=== PATIENT | female | born 1995 | race Hispanic/Latino ===

== ENCOUNTER 2020-12-11 13:52 | Emergency (ER) | payer OTHER ==
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
--- NOTE | 2020-12-11 15:19 | RAD REPORT ---
EXAM DESCRIPTION: RAD - Hand Left 3 View - 12/11/2020 3:05 pm CLINICAL HISTORY: PAIN COMPARISON: No comparisons FINDINGS: No left hand fracture or malalignment. No focal degenerative changes. No radiopaque foreig n bodies. IMPRESSION: No left hand fracture or malalignment.
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
[2020-12-11] MEDS ORDERED: HYDROCODONE/APAP 7.5/325 MG TAB ONE (15:54)
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
== END 2020-12-11 15:35 | disposition home or self-care (01) ==
LOC: ER 13:52
DX: R51.9 Headache, unspecified (principal); M79.604 Pain in right leg; M79.631 Pain in right forearm; M79.642 Pain in left hand; V49.40XA Driver injured in collision with unspecified motor vehicles in traffic accident, initial encounter
CPT/HCPCS: 70450; 70486; 72125; 76377; 99283

== ENCOUNTER 2022-08-26 08:51 | Emergency (ER) | payer OTHER, SELFPAY ==
--- OUTSIDE RECORDS SUMMARY | 2022-08-26 08:55 | XMS REPORT | Continuity of Care Document ---
:1995 Author Organization [facility] t Address [address] [place] [address] Care Team Providers Name Role Phone PCP, PATIENT DOES NOT HAVE A Primary Care Physician Unavaila ble Ester Montalvo DO Attending Clinician ESTER MONTALVO Attending Clinician Unavailable Problems Condition Condition Condition Status Onset Resolution Last Treating Co mments Source Name Details Category Date Date Treatment Clinician Date No known No known Disease Unive rs active active ity of problems problems [facility] Allergies, Adverse Reactions, Alerts Allergy Allergy Status Severity Reaction(s) Onset Inactive Treating Comm ents Source Name Type Date Date Clinician NO KNOWN Drug Active Univers ALLERGIE Class ity of S [facility] Social History Social Habit Start Date Stop Date Quantity Comments Source Exposure to 2021-08-13 2021-08-23 Not sure [facility] SARS-CoV-2 (event) 00:00:00 21:12:00 Medica l Branch Sex Assigned At [birth year] [facility] 00:00:00 00:00:00 [facility] Smoking Status Start Date Stop Date Source Unknown if ever smoked [facility] Medications Ordered Filled Start Stop Current Ordering Indication Dosage Frequency Signature Comments Components Source Medication Medication Date Date Medication? Clinician (SIG) Name Name acetaminoph No 650mg 650 mg, U nivers en 08-24 Oral, ity of (TYLENOL) 05:00: 04:11 ONCE, 1 [place] tablet 650 00 :00 dose, On Medic al mg Tue Branch 08/24/21 at 0000, BRIGITTE NaCl 0.9% 2021- No 1000mL at 999 Uni vers (NS) bolus 08-24 mL/hr, ity of infusion 04:15: 04:49 1,000 mL, Chriss as 1,000 mL 00 :00 IV Medical Infusion, Branch ONCE, 1 dose, On [facility] 08/23/21 at 2315, BRIGITTE cefTRIAXone No 1000mg 1,000 mg, Univers (ROCEPHIN) 08-24 IV ity of 1,000 mg in 04:15: 03:45 Piggyback, [place] NaCl 0.9% 00 :00 ONCE, 1 Medical (NS) 50 mL dose, On Bran h MINI-BAG [facility] 08/23/21 at 2315, Administer over 30 Minutes, 50 mL
Reas on for Anti-Infec tive: Empiric Therapy for Suspected Infection< br>Empiric Therapy Site: Urine
D uration of therapy: 72 hours ibuprofen No 600mg 600 mg, Uni vers (IBU) 08-24 Oral, ity of tablet 600 03:30: 02:30 ONCE, 1 Chriss as mg 00 :00 dose, On Medical Mon Branch 08/23/21 at 2230, BRIGITTE NaCl 0.9% 2021- No 1000mL at 999 Uni vers (NS) bolus 08-24 mL/hr, ity of infusion 03:30: 03:24 1,000 mL, Chriss as 1,000 mL 00 :00 IV Medical Infusion, Branch ONCE, 1 dose, On [facility] 08/23/21 at 2230, BRIGITTE cefpodoxime 2021-2021- No [id number] 100mg Take 1 Univers 100 mg 08-2303 tablet by ity of tablet 00:00: 04:59 mouth 2 [place] 00 :00 (two) Medical times Branch daily for 7 days. Vital Signs Vital Name Observation Time Observation Value Comments Source Systolic blood 2021-08-24 05:22:00 110 mm[Hg] Khai sity of pressure [facility] Diastolic blood 2021-08-24 05:22:00 70 mm[Hg] [facility] Heart rate 2021-08-24 05:22:00 100 /min [facility] Body temperature 2021-08-24 05:22:00 37 [facility] Respiratory rate 2021-08-24 05:22:00 26 /min [facility] Oxygen saturation in 2021-08-24 05:22:00 98 /min [facility] blood by [facility] Pulse oximetry [facility] Body height 2021-08-24 02:14:00 154.9 cm [facility] Body weight 2021-08-24 02:14:00 68.04 kg [facility] BMI 2021-08-24 02:14:00 28.34 kg/m2 [facility] Procedures Procedure Date / Time Performed Performing Clinician Sour e POCT TEST 2021-08-24 02:31:00 Ester Montalvo [facility] MAGNESIUM 2021-08-24 02:29:00 Ester Montalvo [facility] COMP. METABOLIC PANEL 2021-08-24 02:29:00 Ester Montalvo [facility] ([id number]) [facility] CBC WITH DIFF 2021-08-24 02:29:00 Ester Montalvo [facility] URINALYSIS 2021-08-24 02:29:00 Ester Montalvo [facility] RAPID INFLUENZA A/B 2021-08-24 02:29:00 Ester Montalvo [facility] NOTICE OF PRIVACY 2021-08-24 02:18:28 Doctor Unassigned, No Univ [facility] CONSENT/REFUSAL FOR 2021-08-24 02:07:26 Doctor Unassigned, No [facility] DIAGNOSIS AND Name [facility] TREATMENT Encounters Start End Encounter Admission Attending Care Care Encounter Source Date/Time Date/Time Type Type Clinicians Facility Department ID 2022-07-26 2022-07-26 Outpatient [facility] [id number] Errol 16:32:38 16:32:38 [id number] F Praveen 2022-02-07 2022-02-07 Outpatient [facility] [id number] Errol 09:28:36 09:28:36 [id number] F Praveen 2021-08-23 2021-08-24 Emergency [facility] [id number] Univers 21:07:00 00:25:00 Ester LOWRY [id number] [facility] [id number] [place] [facility] [id number] [place] [id number] [facility] 2021-08-23 2021-08-24 Emergency [facility] ERT [id number] Univers 21:07:00 00:25:00 ESTER [facility] Results Test Description Test Time Test Comments Results Result Comments Source MAGNESIUM 2021-08-24 02:59:02 Test Item Value Reference Range Interpretation Comme nts MAGNESIUM (test code = 6268575821) 1.8 mg/dL 1.7-2.4 Lab Interpretation (test code = 87727-1) Normal [facility] (87984)2021-08-24 02:58:42 Test Item Value Reference Range Interpretation Comments NA (test code = 137 mmol/L 135-145 9367492339) K (test code = 3.5 mmol/L 3.5-5.0 6983397177) CL (test code = 100 mmol/L 98-108 0002300906) CO2 TOTAL (test code = 21 mmol/L 23-31 L 3387250604) AGAP (test code = 2-16 7736734875) BUN (test code = 8 mg/dL 7-23 3745115600) GLUCOSE (test code = 144 mg/dL 70-110 H 6363281546) CREATININE (test code = 0.67 mg/dL 0.50-1.04 5073676260) TOTAL BILI (test code = 0.5 mg/dL 0.1-1.9 1919436643) CALCIUM (test code = 8.6 mg/dL 8.6-10.6 3046050246) T PROTEIN (test code = 7.9 g/dL 6.3-8.2 8559453696) ALBUMIN (test code = 4.9 g/dL 3.5-5.0 3612357133) ALK PHOS (test code = 88 U/L 34-122 9140517738) ALTv (test code = 25 U/L 5-35 1742-6) AST(SGOT) (test code = 26 U/L 13-40 6804642170) eGFR (test code = mL/min/1.73m2 8690261063) YNES (test code = YNES) Association of Glomerular Filtration Rate (GFR) and Staging of Kidney Disease* + --+ --+ ------+| GFR (mL/min/1.73 m2) ?| With Kidney Damage ?| ?Without Kidney Damage+ --------+ --------+ +| ?>90 ?| ?Stage one ?| ? Normal ?+ ---+ ---+ -------+| ?60-89 ?| ?Stage two ?| ? Decreased GFR ? + --+ --+ ------+| ?30-59 ?| ?Stage three ?| ? Stage three ? + --+ --+ ------+| ?15-29 ?| ?Stage four ? | ? Stage four ?+ ---+ ---+ -------+| ?<15 (or dialysis) ? ?| ?Stage five ? | ? Stage five ?+ ---+ ---+ -------+ *Each stage assumes the associated GFR level has been in effect for at least three months. ?Stages 1 to 5, with or without kidney disease, indicate chronic kidney disease. Notes: Determination of stages one and two (with eGFR >59mL/min/1.73 m2) requires estimation of kidney damage for at least three months as defined by structural or functional abnormalities of the kidney, manifested by either:Pathological abnormalities or Markers of kidney damage (including abnormalities in the composition of the blood or urine or abnormalities in imaging tests). Lab Interpretation Abnormal (test code = 81327-3) [facility] WITH [id number] 02:40:35 Test Item Value Reference Range Interpretation Comments WBC (test code = See_Comment H [Automated 6690-2) message] The system which generated this result transmit raquel reference range : 4.30 - 11.10 10*3/?L. The reference range was not used to interpret this result as normal/abnormal . RBC (test code = See_Comment [Automated 789-8) message] The system which generated this result transmit raquel reference range : 3.93 - 5.25 10*6/?L. The reference range was not used to interpret this result as normal/abnormal . HGB (test code = 14.5 g/dL 11.6-15.0 718-7) HCT (test code = 44.1 % 35.7-45.2 4544-3) MCV (test code = 85.6 fL 80.6-95.5 787-2) MCH (test code = 28.2 pg 25.9-32.8 785-6) MCHC (test code = 32.9 g/dL 31.6-35.1 786-4) RDW-SD (test code = 38.5 fL 39.0-49.9 L 24410-4) RDW-CV (test code = 12.2 % 12.0-15.5 788-0) PLT (test code = See_Comment [Automated 777-3) message] The system which generated this result transmit raquel reference range : 166 - 358 10*3/ ?L. The reference range was not u sed to interpret th is result as normal/abnormal . MPV (test code = 10.1 fL 9.5-12.9 76238-3) NRBC/100 WBC (test See_Comment [Automat ed code = 1822749789) message] The system which generated this result transmit raquel reference range : 0.0 - 10.0 /100 WBCs. The reference range was not used to interpret this result as normal/abnormal . NRBC x10^3 (test code <0.01 See_Comment [Auto mated = 5590984926) message] The system which generated this result transmit raquel reference range : 10*3/?L. The reference range was not used to interpret this result as normal/abnormal . GRAN MAT (NEUT) % 87.2 % (test code = 770-8) IMM GRAN % (test code 0.40 % = 8503034939) LYMPH % (test code = 7.3 % 736-9) MONO % (test code = 4.9 % 5905-5) EOS % (test code = 0.0 % 713-8) BASO % (test code = 0.2 % 706-2) GRAN MAT x10^3(ANC) 12.02 10*3/uL 1.88-7.09 H (test code = 0079305598) IMM GRAN x10^3 (test 0.05 10*3/uL 0.00-0.06 code = 8115146979) LYMPH x10^3 (test code 1.00 10*3/uL 1.32-3.29 L = 731-0) MONO x10^3 (test code 0.67 10*3/uL 0.33-0.92 = 742-7) EOS x10^3 (test code = <0.03 0.03-0.39 L 711-2) BASO x10^3 (test code 0.03 10*3/uL 0.01-0.07 = 704-7) Lab Interpretation Abnormal (test code = 86341-7) [id number] 02:31:00 Test Item Value Reference Range Interpretation Comments POCT PREG (test code = 1605) NEGATIVE On board controls acceptable with PRESENT C Line (test code = 3574) POCT PREG LOT # (test code = 3575) [id number] POCT PREG TEST DATE (test 01/28/2023 code = 3576) Lab Interpretation (test code = Normal 68531-7) [facility]"
[2022-08-26] MEDS ORDERED: KETOROLAC 30 MG/ML INJ ONE (09:29)
[2022-08-26] MEDS ORDERED: NA CHLORIDE 0.9% 1,000 ML ONE (09:30)
[2022-08-26 09:44] LABS: Absolute Lymphocytes (CBC) 1.6 K/uL (0.7-4.9); Hematocrit 38.7 % (36.0-45.0); Lymphocytes % 17.7 % (15.3-44.8); MCV 84.1 fL (80-100); MPV 7.8 fL (7.6-11.3); RBC Red Blood Cell Count 4.61 M/uL (3.86-4.86)
[2022-08-26 10:05] LABS: Albumin 3.7 g/dL (3.4-5.0); Bilirubin Total 0.3 mg/dL (0.2-1.0); Potassium 3.7 mEq/L (3.5-5.1); Protein, Total 7.4 g/dL (6.4-8.2)
[2022-08-26 10:15] LABS: Specific Gravity 1.019 (1.005-1.030)
[2022-08-26 10:20] LABS: Specific Gravity 1.019 (1.005-1.030); Urine Bacteria 20-50 /HPF (<20); Urine Bilirubin NEGATIVE (Negative); Urine Blood Negative (Negative); Urine Clarity Clear (Clear); Urine Color Light-Yellow (Yellow); Urine Glucose NEGATIVE (Negative); Urine Mucus Slight /HPF (None Seen); Urine Protein NEGATIVE (Negative); Urine RBC <5 /HPF (None Seen); Urine Urobilinogen Normal (Normal); Urine pH 6.5 (5.0-7.0)
--- NOTE | 2022-08-26 11:23 | RAD REPORT ---
EXAM DESCRIPTION: CT - Abdomen Pelvis W Contrast - 08/26/2022 10:36 am CLINICAL HISTORY: ABD PAIN COMPARISON: Head C Spine Mpr Wo Con dated 12/11/2020; Facial Bones W/ Mpr dated 12/11/2020 TECHNIQUE: Thin cut axial CT imaging of the abdomen and pelvis was performed following intravenous a dministration of 100 mL Isovue 300. Multiplanar reformats were generated and reviewed. All CT scans are performed using dose optimization technique as appropriate and may include automated exposure control or mA/KV adjustment according to patient size. FINDINGS: No suspicious findings in the lung bases. The liver demonstrates a posterior right lobe subcapsular eyes enhancing mass with central scar demon strating focal calcification, measuring 9.0 x 7.4 x 6.9 centimeter in greatest AP, transverse, and CC dimensions. Adrenal glands, spleen, and pancreas show no suspicious findings. Gallbladder and biliar y tree are also without suspicious finding. Symmetric renal function is seen with no hydronephrosis or suspicious renal mass. No dilated bowel loops or bowel wall thickening. The appendix is visualized and is unremarkable. No f ree air, free fluid or inflammatory stranding. No hernia, mass or bulky lymphadenopathy. The urinary bladder is without significant finding. No suspicious bony findings. IMPRESSION: Posterior right liver lobe 9 centimeter mass with central scar. Focal nodular hyperplasi a is the primary differential consideration. Fibrolamellar carcinoma and an atypical hemangioma are a lso on the list of possible etiologies. No acute intra-abdominal process. The findings were communicated to Jona De Leon on 08/26/2022 at 11:19 hours.
--- NOTE | 2022-08-26 11:33 | ER ---
Nurse's Notes [facility] Name: Zoey Bennett Age: 26 yrs Sex: Female : 1995 Arrival Date: 08/26/2022 Time: 08:51 Bed 5 Private MD: Diagnosis: Abdominal pain, Generalized;Liver Mass;Diarrhea, unspecified Presentation: 08/26 08:59 Chief complaint: Patient states: Abd pain \T\ diarrhea since Monday - this morning pain ld1 is radiating to L flank. Denies urinary symptoms. Coronavirus screen: At this time, the client does not indicate any symptoms associated with coronavirus-19. Ebola Screen: No symptoms or risks identified at this time. Initial Sepsis Screen: Does the patient meet any 2 criteria? No. Patient's initial sepsis screen is negative. Does the patient have a suspected source of infection? No. Patient's initial sepsis screen is negative. Risk Assessment: Do you want to hurt yourself or someone else? Patient reports no desire to harm self or others. Onset of symptoms was August 26, 2022. 08:59 Method Of Arrival: Ambulatory ld1 08:59 Acuity: DANILO 3 ld1 Triage Assessment: 09:00 General: Appears in no apparent distress. comfortable, Behavior is calm, cooperative, ld1 appropriate for age. Pain: Complains of pain in abdomen Pain does not radiate. Pain currently is 9 out of 10 on a pain scale. Quality of pain is described as crampy, throbbing. EENT: No signs and/or symptoms were reported regarding the EENT system. Neuro: Level of Consciousness is awake, alert, obeys commands, Oriented to person, place, time, situation. Cardiovascular: Capillary refill < 3 seconds Patient's skin is warm and dry. Respiratory: Airway is patent Respiratory effort is even, unlabored. GI: Abdomen is round non-distended, Reports lower abdominal pain, diarrhea, Patient currently denies nausea, vomiting. : Denies burning with urination, pain urinary frequency, urgency. Derm: No signs and/or symptoms reported regarding the dermatologic system. Musculoskeletal: No signs and/or symptoms reported regarding the musculoskeletal system. Historical: - Allergies: 09:00 No Known Allergies; ld1 - Home Meds: 09:00 None [Active]; ld1 - PMHx: 09:00 None; ld1 - PSHx: 09:00 None; ld1 - Immunization history:: Adult Immunizations up to date, Client reports having NOT received the Covid vaccine. - Social history:: Smoking status: Patient denies any tobacco usage or history of. Patient/guardian denies using alcohol. Screenin:00 [facility] ED Fall Risk Assessment (Adult) History of falling in the last 3 months, bp including since admission No falls in past 3 months (0 pts). Abuse screen: Denies threats or abuse. Denies injuries from another. Nutritional screening: No deficits noted. Tuberculosis screening: No symptoms or risk factors identified. Assessment: 09:00 General: SEE TRIAGE NOTE. bp 10:55 Reassessment: No changes from previously documented assessment. Patient is alert, bp oriented x 3, equal unlabored respirations, skin warm/dry/pink. 11:50 Reassessment: PT DC HOME AMBULATORY WITH FAMILY. bp Vital Signs: 08:59 BP 144 / 85; Pulse 107; Resp 18; Temp 98.4(TE); Pulse Ox 100% on R/A; Weight 68.04 kg; ld1 Height 5 ft. 2 in. ; Pain 9/10; 10:54 BP 127 / 80; Pulse 81; Resp 16; Pulse Ox 99% ; bp 11:50 BP 125 / 75; Pulse 90; Resp 16; Pulse Ox 99% ; bp 08:59 Body Mass Index 27.44 (68.04 kg, 157.48 cm) ld1 08:59 Pain Scale: Adult ld1 ED Course: 08:55 Patient arrived in ED. ts1 08:57 Angel[facility] Cummins [facility]C [facility] kb 08:57 Jona De Leon DO is Attending Physician. kb 09:00 Triage completed. ld1 09:00 Arm band placed on right wrist. ld1 09:00 Patient has correct armband on for positive identification. Bed in low position. Call bp light in reach. Side rails up X2. 09:16 Carlos Barajas, DEVYN is Primary Nurse. bp 09:37 Inserted saline lock: 20 gauge in right antecubital area, using aseptic technique. bp Blood collected. 10:38 CT Abd/Pelvis - IV Contrast Only In Process Unspecified. EDMS 11:50 No provider procedures requiring assistance completed. IV discontinued, intact, bp bleeding controlled, No redness/swelling at site. Pressure dressing applied. Administered Medications: 09:36 Drug: NS 0.9% IV 1000 ml Route: IV; Rate: 1 bolus; Site: right antecubital; bp 11:52 Follow up: IV Status: Completed infusion; IV Intake: 1000ml bp 09:36 Drug: TORadol - Ketorolac IVP 15 mg Route: IVP; Site: right antecubital; bp 11:52 Follow up: Response: No adverse reaction bp Medication: 11:50 VIS not applicable for this client. bp Intake: 11:52 IV: 1000ml; Total: 1000ml. bp Outcome: 11:33 Discharge ordered by MD. kb 11:50 Discharged to home ambulatory, with family. bp 11:50 Condition: stable 11:50 Discharge instructions given to patient, Instructed on discharge instructions, follow up and referral plans. medication usage, Demonstrated understanding of instructions, follow-up care, medications, Prescriptions given X 2. 11:53 Patient left the ED. bp Signatures: Dispatcher [employer] EDMS Angelique Cummins, ARUN-C ARUN-Carlos Gudiry, RN RN bp Sofie De Leon RN RN ld1 Jazmine Pride, PAS PAS ts1
--- NOTE | 2022-08-26 11:33 | EDPHYS ---
Physician Documentation [facility] Name: Zoey Bennett Age: 26 yrs Sex: Female : 1995 Arrival Date: 08/26/2022 Time: 08:51 Bed 5 Private MD: ED Physician Jona De Leon HPI: 08/26 09:35 This 26 yrs old Female presents to ER via Ambulatory with complaints of Abd kb Pain > 50 y/o, Back Pain. 09:35 The patient presents with abdominal pain in the lower abdomen. Onset: The kb symptoms/episode began/occurred 5 day(s) ago. The symptoms radiate to the left flank. Associated signs and symptoms: Pertinent positives: diarrhea, Pertinent negatives: nausea and vomiting, dysuria, fever. The symptoms are described as constant. Modifying factors: The symptoms are alleviated by nothing, the symptoms are aggravated by nothing. Severity of pain: At its worst the pain was moderate in the emergency department the pain is unchanged. The patient has not experienced similar symptoms in the past. The patient has not recently seen a physician. Pt reports abd pain that started on Monday, diarrhea started on Monday. States the pain now radiates to left flank. Denies urinary symptoms, fever, nausea and vomiting. Historical: - Allergies: 09:00 No Known Allergies; ld1 - Home Meds: 09:00 None [Active]; ld1 - PMHx: 09:00 None; ld1 - PSHx: 09:00 None; ld1 - Immunization history:: Adult Immunizations up to date, Client reports having NOT received the Covid vaccine. - Social history:: Smoking status: Patient denies any tobacco usage or history of. Patient/guardian denies using alcohol. ROS: 09:33 Constitutional: Negative for fever, chills, and weight loss. kb 09:33 Abdomen/GI: Positive for abdominal pain, diarrhea, Negative for nausea and vomiting, constipation. 09:33 All other systems are negative. Exam: 09:33 Constitutional: This is a well developed, well nourished patient who is awake, alert, kb and in no acute distress. Head/Face: Normocephalic, atraumatic. ENT: Moist Mucous membranes Cardiovascular: Regular rate and rhythm with a normal S1 and S2. No gallops, murmurs, or rubs. No pulse deficits. Respiratory: Respirations even and unlabored. No increased work of breathing. Talking in full sentences Skin: Warm, dry with normal turgor. Normal color. MS/ Extremity: Pulses equal, no cyanosis. Neurovascular intact. Full, normal range of motion. Neuro: Awake and alert, GCS 15, oriented to person, place, time, and situation. Moves all extremities. Normal gait. 09:33 Abdomen/GI: Inspection: abdomen appears normal, Bowel sounds: normal, Palpation: soft, in all quadrants, mild abdominal tenderness, in the right upper quadrant, right lower quadrant and left lower quadrant. Vital Signs: 08:59 BP 144 / 85; Pulse 107; Resp 18; Temp 98.4(TE); Pulse Ox 100% on R/A; Weight 68.04 kg; ld1 Height 5 ft. 2 in. ; Pain 9/10; 10:54 BP 127 / 80; Pulse 81; Resp 16; Pulse Ox 99% ; bp 11:50 BP 125 / 75; Pulse 90; Resp 16; Pulse Ox 99% ; bp 08:59 Body Mass Index 27.44 (68.04 kg, 157.48 cm) ld1 08:59 Pain Scale: Adult ld1 MDM: 08:57 Patient medically screened. kb 09:35 Data reviewed: vital signs, nurses notes. kb 11:31 Differential diagnosis: appendicitis, bowel obstruction, cholecystitis, Cholelithiasis, kb diverticulitis, gastritis, non-specific abd pain. Counseling: I had a detailed discussion with the patient and/or guardian regarding: the historical points, exam findings, and any diagnostic results supporting the discharge/admit diagnosis, lab results, radiology results, the need for outpatient follow up, a family practitioner, a at risk paraprofessional, to return to the emergency department if symptoms worsen or persist or if there are any questions or concerns that arise at home. ED course: Discussed all diagnostic results including liver mass with pt. Educated on need for further evaluation of mass. Verbal understanding received. . 08/26 09:01 Order name: CBC with Diff; Complete Time: 09:48 kb 08/26 09:01 Order name: CMP; Complete Time: 10:25 kb 08/26 09:01 Order name: Lipase; Complete Time: 10:25 kb 08/26 09:01 Order name: Test, Urine; Complete Time: 10:25 kb 08/26 09:01 Order name: Urinalysis w/ reflexes; Complete Time: 10:25 kb 08/26 09:01 Order name: CT Abd/Pelvis - IV Contrast Only; Complete Time: 11:27 kb 08/26 09:01 Order name: IV Saline Lock; Complete Time: 09:36 kb 08/26 09:01 Order name: Labs collected and sent; Complete Time: 09:36 kb Administered Medications: 09:36 Drug: NS 0.9% IV 1000 ml Route: IV; Rate: 1 bolus; Site: right antecubital; bp 11:52 Follow up: IV Status: Completed infusion; IV Intake: 1000ml bp 09:36 Drug: TORadol - Ketorolac IVP 15 mg Route: IVP; Site: right antecubital; bp 11:52 Follow up: Response: No adverse reaction bp Disposition: 19:31 Co-signature as Attending Physician, Jona De Leon DO I was immediately available on-site ms3 in the Emergency Department for consultation in the care of the patient. Disposition Summary: 08/26/22 11:33 Discharge Ordered Location: Home kb Condition: Stable kb Diagnosis - Abdominal pain, Generalized kb - Liver Mass kb - Diarrhea, unspecified kb Followup: kb - With: Emergency Department - When: As needed - Reason: Worsening of condition Followup: kb - With: Private Physician - When: 2 - 3 days - Reason: Recheck today's complaints, Continuance of care, Re-evaluation by your physician Discharge Instructions: - Discharge Summary Sheet kb - Food Choices to Help Relieve Diarrhea, Adult kb - Abdominal Pain, Adult, [id number] kb - Diarrhea, Adult, [id number] kb Forms: - Medication Reconciliation Form kb - Thank You Letter kb - Antibiotic Education kb - Prescription Opioid Use kb - Work release form eb Prescriptions: - Zofran 4 mg Oral Tablet - take 1 tablet by ORAL route every 6 hours As needed; 12 tablet; Refills: 0, kb Product Selection Permitted - dicyclomine 20 mg Oral Tablet - take 1 tablet by ORAL route 4 times per day As needed; 20 tablet; Refills: 0, kb Product Selection Permitted Signatures: Dispatcher [employer] Angelique Jimenez FNP-C FNP-Ckb [place]elt[place], Brian RN RN bp Jona De Leon DO DO ms3 De Leon, Sofie, RN RN ld1
[2022-08-26 12:02] VITALS: TEMP 98.4
[2022-08-26 12:12] VITALS: O2SAT 99
[2022-08-26 12:18] VITALS: BP 125/75
== END 2022-08-26 11:53 | disposition home or self-care (01) ==
LOC: ER 08:51
DX: R10.84 Generalized abdominal pain (principal); K76.9 Liver disease, unspecified; R19.7 Diarrhea, unspecified
CPT/HCPCS: 36415; 74177; 80053; 81001; 81025; 83690; 85025; J7030; Q9967

== ENCOUNTER 2023-10-04 16:44 | Emergency (ER) | payer SELFPAY ==
--- OUTSIDE RECORDS SUMMARY | 2023-10-04 16:50 | XMS REPORT | Continuity of Care Document ---
Author Name Unknown Address [address] [facility] [address] [place] [address] [facility] thconnect Address [address] [facility] [address] [place] [address] Care Team Providers Care Core Stripper Name Role Phone PCP, PATIENT DOES NOT HAVE A Primary Care Physic ayaan Unavailable Gabriela Mead Attending Clinician Unav ailable Ester Montalvo DO Attending Clinician [phone] ESTER MONTALVO Attending Clinician Unavailab le Physician, No Primary or Family Admitting Clinic ayaan Unavailable Payers Payer Name Policy Type Policy Number Effective Date Expirati on Date Source Problems Condition Name Condition Details Condition Category Status Onset Date Resolution Date Last Treatment Date Treating Clinician Comments Source No known active problems No known active problems Disease [facility] Allergies, Adverse Reactions, Alerts Allergy Name Allergy Type Status Severity Reaction(s) Onset Date Inactive Date Treating Clinician Comments Source No Known Allergie s DA Active U 09-30 00:00: 00 [facility] NO KNOWN ALLERGIE S Drug Class Active [facility] Social History Social Habit Start Date Stop Date Quantity Comments Source Exposure to SARS-CoV-2 (event) 2021-08-13 00:00:00 2021-08-23 21:12:00 Not sure [facility] Sex Assigned At 1995 00:00:00 1995 00:00:00 [facility] Smoking Status Start Date Stop Date Source Unknown if ever smoked [facility] Medications Ordered Medication Name Filled Medication Name Start Date Stop Date Current Medication? Ordering Clinician Indication Dosage Frequency Signature (SIG) Comments Components Source acetaminoph en (TYLENOL) tablet 650 mg 08-24 05:00: 00 08-24 04:11 :00 No 650mg 650 mg, Oral, ONCE, 1 dose, On Mon08/24/21 at 0000, [facility] NaCl 0.9% (NS) bolus infusion 1,000 mL 08-24 04:15: 00 08-24 04:49 :00 No 1000mL at 999 mL/hr, 1,000 mL, IV Infusion, ONCE, 1 dose, On Mon08/23/21 at 2315, [facility] cefTRIAXone (ROCEPHIN) 1,000 mg in NaCl 0.9% (NS) 50 mL MINI-BAG 08-24 04:15: 00 08-24 03:45 :00 No 1000mg 1,000 mg, IV Piggyback, ONCE, 1 dose, On Mon08/23/21 at 2315, Administer over 30 Minutes, 50 mL
Reas on for Anti-Infec tive: Empiric Therapy for Suspected Infection< br>Empiric Therapy Site: Urine
D uration of therapy: 72 hours [facility] ibuprofen (IBU) tablet 600 mg 08-24 03:30: 00 08-24 02:30 :00 No 600mg 600 mg, Oral, ONCE, 1 dose, On Mon08/23/21 at 2230, [facility] NaCl 0.9% (NS) bolus infusion 1,000 mL 08-24 03:30: 00 08-24 03:24 :00 No 1000mL at 999 mL/hr, 1,000 mL, IV Infusion, ONCE, 1 dose, On Mon08/23/21 at 2230, [facility] cefpodoxime 100 mg tablet 08-23 00:00: 00 08-31 04:59 :00 No [id number] 100mg Take 1 tablet by mouth 2 (two) times daily for 7 days. [facility] Vital Signs Vital Name Observation Time Observation Value Comments S frances Systolic blood pressure 2021-08-24 05:22:00 110 mm[Hg] [facility] Diastolic blood pressure 2021-08-24 05:22:00 70 mm[Hg] [facility] Heart rate 2021-08-24 05:22:00 100 /min [facility] Body temperature 2021-08-24 05:22:00 37 [place] [facility] Respiratory rate 2021-08-24 05:22:00 26 /min [facility] Oxygen saturation in Arterial blood by Pulse oximetry 2021-08-24 05:22:00 98 /min [facility] Body height 2021-08-24 02:14:00 154.9 cm [facility] Body weight 2021-08-24 02:14:00 68.04 kg [facility] BMI 2021-08-24 02:14:00 28.34 kg/m2 [facility] Procedures Procedure Date / Time Performed Performing Clinicia n Source POCT TEST 2021-08-24 02:31:00 Claire Montalvo ra [facility] MAGNESIUM 2021-08-24 02:29:00 [facility] METABOLIC PANEL ([id number]) 2021-08-24 02:29:00 Ester Montalvo [facility] CBC WITH DIFF 2021-08-24 02:29:00 [facility] 2021-08-24 02:29:00 [facility] RAPID INFLUENZA A/B 2021-08-24 02:29:00 Claire Montalvo ra [facility] NOTICE OF PRIVACY PRACTICES 2021-08-24 02:18:28 Doctor Unassigned, [place] [facility] CONSENT/REFUSAL FOR DIAGNOSIS AND TREATMENT 2021-08-24 02:07:26 Doctor Unassigned, [place] [facility] Encounters Start Date/Time End Date/Time Encounter Type Admission Type Attending [facility] Facility Care Department Encounter ID Source 2023-10-01 17:28:00 2023-10-01 19:49:00 Emergency EM Ariadna Heck Gabriela [facility] ER [id number] [address] [facility] 2023-09-15 16:05:33 2023-09-15 16:05:33 Outpatient [facility] [id number] Errol Morton 2023-01-11 09:17:06 2023-01-11 09:17:06 Outpatient [facility] [id number] Errol Morton 2022-07-26 16:32:38 2022-07-26 16:32:38 Outpatient [facility] [id number] Errol Morton 2022-02-07 09:28:36 2022-02-07 09:28:36 Outpatient [facility] [id number] Errol Morton 2021-08-23 21:07:00 2021-08-24 00:25:00 Emergency Ester Montalvo [facility] [id number] [facility] 2021-08-23 21:07:00 2021-08-24 00:25:00 Emergency X ESTER MONTALVO [facility] ERT [id number] [facility] Results Test Description Test Time Test Comments Results Result Co mments Source HEPATIC FUNCTION [id number] 18:34:00* Test Item Value Reference Range Interpretation Comme nts TOTAL PROTEIN (test code = PROT) 8.4 G/DL 6.4-8.2 H ALBUMIN (test code = ALB) 4.3 G/DL 3.4-5.0 N GLOBULIN (test code = GLOB) 4.1 G/DL 1.5-3.8 H ALBUMIN/GLOBULIN RATIO (test code = A/G) 1.0 1.1-2.2 L BILIRUBIN TOTAL (test code = BILT) 0.2 MG/DL 0.0-1.0 N BILIRUBIN DIRECT (test code = BILD) 0.1 MG/DL 0.0-0.3 N SGOT/AST (test code = AST) 16 Units/L 15-37 N Results of this assay method may be falsely depressed orelevated if patient is taking sulfasalazine. SGPT/ALT (test code = ALT) 31 Units/L 30-65 N Results of this assay method may be falsely depressed orelevated if patient is taking sulfasalazine. ALKALINE PHOSPHATASE TOTAL (test code = ALKP) 88 Units/L 50-136 N BILIRUBIN INDIRECT (test code = BILIND) 0.1 MG/DL 0.0-0.7 N [id number] 18:34:00* Test Item Value Reference Range Interpretation Comme nts MAGNESIUM (test code = MAG) 2.2 MG/DL 1.8-2.4 N THYROID STIMULATING [id number] 18:34:00* Test Item Value Reference Range Interpretation Comme nts THYROID STIMULATING HORMONE (test code = TSH) 2.52 0.42-5.47 N Micro- International Units/LResults of this assay method may be falsely depressed orelevated if patient is taking high doses of Biotin. TROP-I HIGH [id number] 18:34:00* Test Item Value Reference Range Interpretation Comme nts TROP-I HIGH SENSITIVITY (test code = TROPIHS) < 4 ng/L < 51 - The use of serial sampling and testing protocol is a recommended practice.- An elevated troponin level alone is often not sufficient for diagnosis of myocardial infarction.Results of this assay method may be falsely depressed orelevated if patient is taking high doses of Biotin. - XR CHEST 1 [id number] 18:28:00 [facility] 1995 Sex: F Patient Name: SANDRA GARDINER Unit No: [id number] EXAMS: CPT CODE: [id number] XR CHEST 1 V 15975Azkmep: chest pain EXAM: AP chest LOCATION: H 12 HISTORY: chest pain COMPARISON: None. FINDINGS: The lungs are clear. No infiltrate or effusion is seen. The pulmonary vasculature is normal. The heart size is normal. The mediastinal silhouette is unremarkable. The bony thorax is intact. IMPRESSION:No acute disease. at 1828 Reported and signed by: Rome Culp MD CC: Gabriela Heck MD; Pattie GUEVARA Technologist: Tuan Matos, RT Trscrpt Dt/ ([id number])[id number] Orig Print D/T: S: 10/01/2023 (1830) [facility] NAME: SANDRA GARDINER [id number]: [place] [address] : 1995 AGE: 28 SEX: F LOC: [facility] PHONE #: [phone] EXAM DATE: 10/01/2023 STATUS: REG ER FAX #: RAD NO: DC Dt: PAGE 1 Signed [id number] 02:59:02* Test Item Value Reference Range Interpretation Comme nts MAGNESIUM (test code = 0693070241) 1.8 mg/dL 1.7-2.4 Lab Interpretation (test cod e = 96185-2) Normal [facility]. METABOLIC PANEL ([id number])2021-08-24 02:58:42* Test Item Value Reference Range Interpretation Comme nts NA (test code = 7288388668) 137 mmol/L 135-145 K (test code = 8277816208) 3.5 mmol/L 3.5-5.0 CL (test code = 9493993274) 100 mmol/L 98-108 CO2 TOTAL (test code = 2845005243) 21 mmol/L 23-31 L AGAP (test code = 2074322362) 2-16 BUN (test code = 4598197516) 8 mg/dL 7-23 GLUCOSE (test code = 2895404993) 144 mg/dL 70-110 H CREATININE (test code = 2551123145) 0.67 mg/dL 0.50-1.04 TOTAL BILI (test code = 7005758111) 0.5 mg/dL 0.1-1.1 CALCIUM (test code = 5240576010) 8.6 mg/dL 8.6-10.6 T PROTEIN (test code = 4831098172) 7.9 g/dL 6.3-8.2 ALBUMIN (test code = 3909915772) 4.9 g/dL 3.5-5.0 ALK PHOS (test code = 3303682355) 88 U/L 34-122 ALTv (test code = 1742-6) 25 U/L 5-35 AST(SGOT) (test code = 3181286335) 26 U/L 13-40 eGFR (test code = 0705554407) mL/min/1.73m2 YNES (test code = YNES) Association of [...] or abnormalities in imaging tests). Lab Interpretation (test code = 12517-5) Abnormal [facility] WITH [id number] 02:40:35* Test Item Value Reference Range Interpretation Comme nts WBC (test code = 6690-2) See_Comment H [Automated message] The system which generated this result transmitted reference range: 4.30 - 11.10 10*3/?L. The reference range was not used to interpret this result as normal/abnormal. RBC (test code = 789-8) See_Comment [Automated message] The system which generated this result transmitted reference range: 3.93 - 5.25 10*6/?L. The reference range was not used to interpret this result as normal/abnormal. HGB (test code = 718-7) 14.5 g/dL 11.6-15.0 HCT (test code = 4544-3) 44.1 % 35.7-45.2 MCV (test code = 787-2) 85.6 fL 80.6-95.5 MCH (test code = 785-6) 28.2 pg 25.9-32.8 MCHC (test code = 786-4) 32.9 g/dL 31.6-35.1 RDW-SD (test code = 51114-8) 38.5 fL 39.0-49.9 L RDW-CV (test code = 788-0) 12.2 % 12.0-15.5 PLT (test code = 777-3) See_Comment [Automated message] The system which generated this result transmitted reference range: 166 - 358 10*3/?L. The reference range was not used to interpret this result as normal/abnormal. MPV (test code = 42189-4) 10.1 fL 9.5-12.9 NRBC/100 WBC (test code = 0410018618) See_Comment [Automated message] The system which generated this result transmitted reference range: 0.0 - 10.0 /100 WBCs. The reference range was not used to interpret this result as normal/abnormal. NRBC x10^3 (test code = 2901477580) <0.01 See_Comment [Automated message] The system which generated this result transmitted reference range: 10*3/?L. The reference range was not used to interpret this result as normal/abnormal. GRAN MAT (NEUT) % (test code = 770-8) 87.2 % IMM GRAN % (test code = 4251756732) 0.40 % LYMPH % (test code = 736-9) 7.3 % MONO % (test code = 5905-5) 4.9 % EOS % (test code = 713-8) 0.0 % BASO % (test code = 706-2) 0.2 % GRAN MAT x10^3(ANC) (test code = 8106489240) 12.02 10*3/uL 1.88-7.09 H IMM GRAN x10^3 (test code = 6144693687) 0.05 10*3/uL 0.00-0.06 LYMPH x10^3 (test code = 731-0) 1.00 10*3/uL 1.32-3.29 L MONO x10^3 (test code = 742-7) 0.67 10*3/uL 0.33-0.92 EOS x10^3 (test code = 711-2) <0.03 0.03-0.39 L BASO x10^3 (test code = 704-7) 0.03 10*3/uL 0.01-0.07 Lab Interpretation (test code = 58513-8) Abnormal [facility] [id number] 02:31:00* Test Item Value Reference Range Interpretation Comme nts POCT PREG (test code = 1605) NEGATIVE On board controls acceptable with C Line (test code = 3574) PRESENT POCT PREG LOT # (test code = 3575) [id number] POCT PREG TEST DATE ( test code = 3576) 01/28/2023 Lab Interpretation (test cod e = 94983-3) Normal [facility] Notes Date/Time Note Provider Source 2023-10-01 17:37:00 [id number]:37:97010 3-0020 [place], [place] PATIENT NAME: SANDRA GARDINER ADMIT DATE: 10/01/23ACCOUNT NO: [id number] ROOM NO: AGE: 28 REPORT TYPE: ELECTROCARDIOGRAM SEX: F : [birth year]ADMITTING PHYSICIAN: ATTENDING PHYSICIAN:Gabriela Mead MD Order:[id number] Reason : chest pain Test Date/Time Stamp:MonOct 01 2023 17:37:10Blood Pressure : / mmHGVent. Rate : 092 BPM Atrial Rate : 092 BPM P-R Int : 156 ms QRS Dur : 070 ms QT Int : 360 ms P-R-T Axes : 045 -08 019 degrees QTc Int : 445 ms Normal sinus rhythmAnterolateral infarct , age undeterminedAbnormal ECG Confirmed by RAFAEL WASHINGTON DO ([id number]), story editor TERRI ALVARENGA ([id number]) on 0:33:53 AM Referred By: Self Referred Confirmed by:RAFAEL WASHINGTON DO at 1033 PATIENT NAME: SANDRA GARDINER .[id number] AVAvailable for patient [id number]:34:19 [facility]"
[2023-10-04 17:32] LABS: Specific Gravity 1.008 (1.005-1.030)
[2023-10-04 17:43] LABS: Absolute Eosinophils 0.1 K/uL (0-0.5); Absolute Lymphocytes (CBC) 1.8 K/uL (0.7-4.9); Absolute Monocytes 0.6 K/uL (0.1-1.3); Absolute Neutrophil 5.5 K/uL (1.8-8.0); Basophils % 0.4 % (0-1.3); Eosinophils % 1.1 % (0-4.4); Hematocrit 40.2 % (36.0-45.0); Hemoglobin 13.5 g/dL (12.0-15.0); Lymphocytes % 22.7 % (15.3-44.8); MCH 28.4 pg (27.0-35.0); MCHC 33.6 g/dL (32.0-36.0); MCV 84.6 fL (80-100); MPV 7.8 fL (7.6-11.3); Monocytes % 7.5 % (3.3-12.3); Neutrophils % 68.3 % (41.7-73.7); Nucleated Red Blood Cells % 0.1 % (0-0); Platelets 257 thou/uL (152-406); RBC Red Blood Cell Count 4.75 M/uL (3.86-4.86); Red Cell Distribution Width 13.7 % (12.1-15.2)
[2023-10-04 17:49] LABS: Anion Gap 7.7 mEq/L (5.0-15.0); BUN Blood Urea Nitrogen 8 mg/dL (7-18); Bicarbonate 28 mEq/L (21-32); Glomerular Filtration Rate 122 ml/min (=/>90); Glucose Level 103 mg/dL (74-106); Magnesium 2.3 mg/dL (1.6-2.4); Potassium 3.7 mEq/L (3.5-5.1); Sodium Level 138 mEq/L (136-145)
[2023-10-04 17:55] LABS: Troponin High Sensitivity < 3.0 pg/mL (<58.9)
[2023-10-04] MEDS ORDERED: NA CHLORIDE 0.9% 1,000 ML ONE (18:00)
--- NOTE | 2023-10-04 18:10 | RAD REPORT ---
EXAM DESCRIPTION: RAD - Chest Single View - 10/04/2023 6:03 pm CLINICAL HISTORY: CHEST PAIN Chest pain. COMPARISON: <Comparisons> FINDINGS: Portable technique limits examination quality. The lungs are grossly clear. The heart is normal in size. No displaced fractures. IMPRESSION: No acute intrathoracic process suspected.
--- NOTE | 2023-10-04 18:45 | EDPHYS ---
Physician Documentation [facility] Name: Zoey Bennett Age: 28 yrs Sex: Female : 1995 Arrival Date: 10/04/2023 Time: 16:44 Bed 26 Private MD: ED Physician Jona De Leon HPI: 10/03 16:56 This 28 yrs old Female presents to ER via Unassigned with complaints of Chest ms3 Pain, Fast heart rate. 16:56 28-year-old female with no past medical history presents to the emergency department ms3 for rapid heart rate that began on September 30. Patient states she was seen in a [place] emergency department where everything was normal. Patient states today her chest began burning causing her to return to the emergency department. Patient states her discomfort is a 8/10. Patient denies any alleviating or inciting factors.. SNOW BLOWER: 19:07 Not cm10 Historical: - Allergies: 17:05 No Known Allergies; ap3 - Home Meds: 17:05 control [Active]; ap3 - PMHx: 17:05 None; ap3 - Immunization history:: Client reports receiving the 2nd dose of the Covid vaccine. - Infectious Disease History:: Denies. - Social history:: Smoking status: Patient denies any tobacco usage or history of. ROS: 16:56 Constitutional: Negative for fever, and chills. Neck: Negative for injury, pain, and ms3 swelling, 16:56 Respiratory: Negative for shortness of breath, cough, wheezing, and pleuritic chest pain, Abdomen/GI: Negative for abdominal pain, nausea, vomiting, diarrhea, and constipation, MS/Extremity: Negative for injury and deformity, Skin: Negative for injury, rash, and discoloration, 16:56 Cardiovascular: Positive for chest pain, palpitations, Exam: 16:56 Constitutional: This is a well developed, well nourished patient who is awake, alert, ms3 and in no acute distress. Chest/axilla: Normal chest wall appearance and motion. Nontender with no deformity. Cardiovascular: Regular rate and rhythm with a normal S1 and S2. No gallops, murmurs, or rubs. Normal PMI, no JVD. No pulse deficits. Respiratory: Lungs have equal breath sounds bilaterally, clear to auscultation and percussion. No rales, rhonchi or wheezes noted. No increased work of breathing, no retractions or nasal flaring. Abdomen/GI: Soft, non-tender, with normal bowel sounds. No distension or tympany. No guarding or rebound. No evidence of tenderness throughout. Skin: Warm, dry with normal turgor. Normal color with no rashes, no lesions, and no evidence of cellulitis. MS/ Extremity: Pulses equal, no cyanosis. Neurovascular intact. Full, normal range of motion. 17:50 ECG was reviewed by the Attending Physician. ms3 Vital Signs: 17:02 BP 141 / 91; Pulse 103; Resp 16; Temp 98.4; Pulse Ox 100% ; ms3 17:03 BP 141 / 91; Pulse 103; Resp 17; Temp 98.4; Pulse Ox 100% ; Weight 74.84 kg; Height 5 ap3 ft. 1 in. ; Pain 8/10; 18:00 BP 122 / 76; Pulse 85; Resp 18; Pulse Ox 98% on R/A; cm10 18:30 BP 114 / 70; Pulse 84; Resp 18; Pulse Ox 98% on R/A; cm10 17:03 Body Mass Index 31.18 (74.84 kg, 154.94 cm) ap3 17:03 Pain Scale: Adult ap3 MDM: 17:04 Patient medically screened. ms3 17:47 Differential diagnosis: abnormal EKG, acute myocardial infarction, pulmonary embolus. ms3 Test considered but Not performed: CT: CT for PE not performed as D-dimer is negative. 17:49 Transition of care: After a detail discussion of the patient's case, care is ms3 transferred to Broderick Duffy MD. 18:43 Data reviewed: vital signs, nurses notes, lab test result(s), EKG, radiologic studies, abbey plain films. 10/03 16:56 Order name: Basic Metabolic Panel; Complete Time: 18:43 ms3 10/03 16:56 Order name: CBC with Diff; Complete Time: 17:47 ms3 10/03 16:56 Order name: D-Dimer; Complete Time: 17:47 ms3 10/03 16:56 Order name: Magnesium; Complete Time: 18:43 ms3 10/03 16:56 Order name: Troponin HS; Complete Time: 18:43 ms3 10/03 16:56 Order name: Test, Urine; Complete Time: 17:47 ms3 10/03 16:56 Order name: XRAY Chest (1 view); Complete Time: 18:43 ms3 10/03 16:56 Order name: Cardiac monitoring; Complete Time: 17:49 ms3 10/03 16:56 Order name: EKG - Nurse/Tech; Complete Time: 17:27 ms3 10/03 16:56 Order name: IV Saline Lock; Complete Time: 17:27 ms3 10/03 16:56 Order name: Labs collected and sent; Complete Time: 17:27 ms3 10/03 16:56 Order name: O2 Per Protocol; Complete Time: 17:49 ms3 10/03 16:56 Order name: O2 Sat Monitoring; Complete Time: 17:49 ms3 EC:50 Rate is 90 beats/min. Rhythm is regular. QRS [place] is Normal. NC interval is normal. QRS ms3 interval is normal. QT interval is normal. Clinical impression: Normal ECG. Interpreted by me. Reviewed by me. Administered Medications: 18:10 Drug: NS 0.9% IV 1000 ml IV at 1 bolus Per protocol; 1000 mL bolus Route: IV; Rate: 1 cm10 bolus; Site: right antecubital; 19:09 Follow up: Response: No adverse reaction; IV Status: Completed infusion; IV Intake: cm10 1000ml Disposition Summary: 10/04/23 18:44 Discharge Ordered Notes: Location: Home [facility] Condition: Stable abbey Diagnosis - Palpitations abbey - Chest pain, unspecified abbey Followup: ms3 - With: Escobar Orozco MD - When: 2 - 3 days - Reason: Recheck today's complaints Discharge Instructions: - Discharge Summary Sheet ms3 - Nonspecific Chest Pain, Adult ms3 - Palpitations ms3 Forms: - Medication Reconciliation Form abbey - Antibiotic Education abbey - Prescription Opioid Use abbey - Patient Portal Instructions abbey - Leadership Thank You Letter abbey Signatures: Dispatcher [employer] Broderick Durand MD MD cha Prokisch, Amanda, RN RN [email or web address] Jona De Leon DO DO ms3 Loren Roberto RN RN cm10 Corrections: (The following items were deleted from the chart) 16:56 16:56 BASIC METABOLIC PANEL+C.LAB.BRZ ordered. EDIN MARÍA 16:56 16:56 CBC+H.LAB.BRZ ordered. EDMS EDMS 16:56 16:56 D-DIMER+COAG.LAB.BRZ ordered. EDMS EDMS 16:56 16:56 MAGNESIUM+C.LAB.BRZ ordered. EDMS EDMS 16:56 16:56 Troponin High Sensitivity+C.LAB.BRZ ordered. EDMS EDMS 16:56 16:56 Test, Urine+UC.LAB.BRZ ordered. EDMS EDMS 17:05 17:05 Home Meds: None; ap3 ap3
--- NOTE | 2023-10-04 18:45 | ER ---
Nurse's Notes [facility] Name: Zoey Bennett Age: 28 yrs Sex: Female : 1995 Arrival Date: 10/04/2023 Time: 16:44 Bed 26 Private MD: Diagnosis: Palpitations;Chest pain, unspecified Presentation: 10/03 17:03 Chief complaint: Patient states: she has been having increased hr since 09/29. was ap3 evaluated at another facility on 09/30, but developed burning chest pain today, and wanted to be evaluated. patient rates her pain as a 8/10 on the pain scale at this time. Coronavirus screen: At this time, the client does not indicate any symptoms associated with coronavirus-19. Ebola Screen: No symptoms or risks identified at this time. Initial Sepsis Screen: Does the patient meet any 2 criteria? No. Patient's initial sepsis screen is negative. Does the patient have a suspected source of infection? No. Patient's initial sepsis screen is negative. Risk Assessment: Do you want to hurt yourself or someone else? Patient reports no desire to harm self or others. Onset of symptoms was October 04, 2023. 17:03 Method Of Arrival: Ambulatory ap3 17:03 Acuity: DANILO 2 ap3 Triage Assessment: 17:05 General: Appears in no apparent distress. Behavior is calm, cooperative, appropriate ap3 for age. Pain: Complains of pain in chest Pain currently is 8 out of 10 on a pain scale. Quality of pain is described as burning. Neuro: Level of Consciousness is awake, alert, obeys commands, Oriented to person, place, time, situation, Appropriate for age. Cardiovascular: Reports chest pain, Patient's skin is warm and dry. Respiratory: Airway is patent Respiratory effort is even, unlabored, Respiratory pattern is regular, symmetrical. 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 - Infectious Disease History:: Denies. - Social history:: Smoking status: Patient denies any tobacco usage or history of. Screenin:06 Abuse screen: Denies threats or abuse. Nutritional screening: No deficits noted. ap3 Tuberculosis screening: No symptoms or risk factors identified. 17:50 [facility] ED Fall Risk Assessment (Adult) History of falling in the last 3 months, cm10 including since admission No falls in past 3 months (0 pts) Confusion or Disorientation No (0 pts) Intoxicated or Sedated No (0 pts) Impaired Gait No (0 pts) Mobility Assist Device Used No (0 pt) Altered Elimination No (0 pt) Score/Fall Risk Level 0 - 2 = Low Risk Oriented to surroundings, Maintained a safe environment, Hourly rounding (assess needs \T\ fall precautionary measures) done. Assessment: 17:49 General: Appears in no apparent distress. comfortable, Behavior is calm, cooperative, cm10 appropriate for age. Pain: Complains of pain in chest Pain does not radiate. Pain currently is 8 out of 10 on a pain scale. Quality of pain is described as burning, Pain began 2-3 days ago. Neuro: No deficits noted. Level of Consciousness is awake, alert, obeys commands, Oriented to person, place, time, situation, Appropriate for age. Cardiovascular: No deficits noted. Heart tones present Patient's skin is warm and dry. Rhythm is sinus rhythm. Respiratory: No deficits noted. Airway is patent Respiratory effort is even, unlabored, Respiratory pattern is regular, symmetrical, Breath sounds are clear bilaterally. Musculoskeletal: No deficits noted. Range of motion: intact in all extremities. 18:30 Reassessment: Patient appears in no apparent distress at this time. No changes from cm10 previously documented assessment. Patient and/or family updated on plan of care and expected duration. Pain level reassessed. Patient is alert, oriented x 3, equal unlabored respirations, skin warm/dry/pink. Vital Signs: 17:02 BP 141 / 91; Pulse 103; Resp 16; Temp 98.4; Pulse Ox 100% ; ms3 17:03 BP 141 / 91; Pulse 103; Resp 17; Temp 98.4; Pulse Ox 100% ; Weight 74.84 kg; Height 5 ap3 ft. 1 in. ; Pain 8/10; 18:00 BP 122 / 76; Pulse 85; Resp 18; Pulse Ox 98% on R/A; cm10 18:30 BP 114 / 70; Pulse 84; Resp 18; Pulse Ox 98% on R/A; cm10 17:03 Body Mass Index 31.18 (74.84 kg, 154.94 cm) ap3 17:03 Pain Scale: Adult ap3 ED Course: 16:47 Patient arrived in ED. mr 16:47 Jona De Leon DO is Attending Physician. ms3 17:05 Triage completed. ap3 17:06 Arm band placed on right wrist. ap3 17:06 Patient has correct armband on for positive identification. ap3 17:06 O2 via room air. ap3 17:16 Loren Roberto, RN is Primary Nurse. cm10 17:27 Test, Urine Sent. bc6 17:27 Basic Metabolic Panel Sent. bc6 17:27 CBC with Diff Sent. bc6 17:27 D-Dimer Sent. bc6 17:27 Magnesium Sent. bc6 17:27 Troponin HS Sent. bc6 17:27 Initial lab(s) drawn, by ms, sent to lab. Urine collected: clean catch specimen, clear. bc6 Inserted saline lock: 20 gauge in right antecubital area, using aseptic technique. Blood collected. 17:50 Provided Education on: ER process and procedures.. Client placed on continuous cardiac cm10 and pulse oximetry monitoring. NIBP monitoring applied. playground monitor on. Warm blanket given. 18:05 XRAY Chest (1 view) In Process Unspecified. EDMS 18:44 Escobar Orozco MD is Referral Physician. abbey 19:08 No provider procedures requiring assistance completed. IV discontinued, intact, cm10 bleeding controlled, No redness/swelling at site. Pressure dressing applied. Administered Medications: 18:10 Drug: NS 0.9% IV 1000 ml IV at 1 bolus Per protocol; 1000 mL bolus Route: IV; Rate: 1 cm10 bolus; Site: right antecubital; 19:09 Follow up: Response: No adverse reaction; IV Status: Completed infusion; IV Intake: cm10 1000ml Medication: 17:50 VIS not applicable for this client. cm10 Intake: 19:09 IV: 1000ml; Total: 1000ml. cm10 Outcome: 18:44 Discharge ordered by . abbey 19:08 Discharged to home ambulatory, cm10 19:08 Condition: good 19:08 Discharge instructions given to patient, Instructed on discharge instructions, follow up and referral plans. Demonstrated understanding of instructions, follow-up care, 19:09 Patient left the ED. cm10 Signatures: Dispatcher [employer] Broderick Durand MD MD cha Rivera, [place], Reg Reg mr Angélica Gill, RN RN ap3 Jona De Leon DO DO ms3 Gabi [email or web address] Loren Roberto RN RN cm10 Corrections: (The following items were deleted from the chart) 17:05 17:05 Home Meds: None; ap3 ap3
[2023-10-04 19:19] VITALS: BP 114/70; TEMP 98.4; O2SAT 98
--- NOTE | 2023-10-07 11:51 | EKG ---
Test Date: 2023-10-04 Test Time: 17:24:22 Pot Pusher: BETOW MEASUREMENT RESULTS: Intervals: Rate: 90 MA: 158 QRSD: 70 QT: 336 QTc: 411 [place]: P: 43 MA: 158 QRS: 56 T: -8 INTERPRETIVE STATEMENTS: Normal sinus rhythm Normal ECG No previous ECG available for comparison Electronically Signed On 10-07-23 11:48:51 CDT by Kevin Olvera
== END 2023-10-04 19:09 | disposition home or self-care (01) ==
LOC: ER 16:44
DX: R07.9 Chest pain, unspecified (principal); R00.2 Palpitations
CPT/HCPCS: 36415; 71045; 80048; 81025; 83735; 84484; 85025; 85379; 93005; 96360; 99285; J7030